=== PATIENT | female | born 1980 | race Asian ===

== ENCOUNTER 2018-02-24 12:33 | Outpatient (CLI) | payer BC | END 2018-02-24 19:16 | disposition home or self-care (01) | LOC: US 12:33 | DX: R10.31 Right lower quadrant pain (principal) ==

== ENCOUNTER 2019-11-30 13:33 | Outpatient (CLI) | payer BC | END 2019-11-30 19:40 | disposition home or self-care (01) | LOC: RAD 13:33 | DX: M77.32 Calcaneal spur, left foot (principal) ==

== ENCOUNTER 2020-03-27 09:26 | Outpatient (CLI) | payer BC | END 2020-03-27 18:56 | disposition home or self-care (01) | LOC: RAD 09:26 | DX: M54.12 Radiculopathy, cervical region (principal) ==

== ENCOUNTER 2022-03-02 10:26 | Outpatient (CLI) | payer BC | END 2022-03-02 19:01 | disposition home or self-care (01) | LOC: US 10:26 | PROVIDERS: ATTEND Nurse Practitioner Family | DX: K40.90 Unilateral inguinal hernia, without obstruction or gangrene, not specified as recurrent (principal) ==